=== PATIENT | female | born 1930 ===

== ENCOUNTER 2017-07-18 09:26 | Day surgery (SDC) | payer MEDICARE, MEDICAID ==
--- NOTE | 2017-07-14 13:58 | Pre-Procedure Note/Attestation ---
Pre-Procedure Note/Attestation Complete Prior to Procedure Planned Procedure: bilateral Procedure Narrative: 1- Ptosis correction upper lids. 2- Entropion correction upper lids. 3-Blepharoplasty uppers lids. 4-conjunctivoplasty with amniotic membrane graft, both eyes Indications for Procedure Pre-Operative Diagnosis: 1- Blepharoptosis upper lids 2-Entropion upper lids. 3-Blepharochalasis upper lids 4-conjunctivochalasis , both eyes. Attestation I attest that I discussed the nature of the procedure; its benefits; risks and complications; and alternatives (and the risks and benefits of such alternatives ), prior to the procedure, with the patient (or the patient's legal financial representative). I attest that, if there was a reasonable possibility of needing a blood transfusion, the patient (or the patient's legal financial representative) was given the [facility] standardized written summary, pursuant to the Gordon Won Blood Safety Act ([place] Health and Safety Code # 1645, as amended). I attest that I re-evaluated the patient just prior to the surgery and that there has been no change in the patient's H&P, except as documented below: SHARITA PEDRO Jul 14, 2017 13:58
[2017-07-18] VITALS (10 sets, daily range): BP systolic 123–197; BP diastolic 58–79
[~2017-07-18] VITALS: Ht 149.9 cm; Wt 54.4 kg
[~2017-07-18 09:26] MED LIST: Akten 3.5% 1ml Btl BOTH EYES ONE; Maxitrol Opth Oint 3.5gm BOTH EYES ONE; NKM; NS Irrig 1000ml ONE; Sterile Water Irrig 1000ml IRRIG ONE
[2017-07-18] MEDS ORDERED: Akten 3.5% 1ml Btl ONE (09:37)
[2017-07-18] MEDS ORDERED: Bupivacaine 0.75% 30ml vial INJ ONE (10:09)
[2017-07-18] MEDS ORDERED: Povidone-Iodine 5% opth solution ONE (10:09)
[2017-07-18 10:21] LABS: BASOPHILS % (AUTO) 1.6 % (0.0-2.0); LYMPHOCYTES % (AUTO) 41.1 % (20.0-45.0); MEAN CORPUSCULAR HEMOGLOBIN 26.5 PG (27.0-31.0); MEAN CORPUSCULAR HGB CONC 31.3 G/DL (32.0-36.0); MEAN CORPUSCULAR VOLUME 85 FL (80-99); MEAN PLATELET VOLUME 9.7 FL (6.5-10.1); MONOCYTES % (AUTO) 9.7 % (1.0-10.0); NEUTROPHILS % (AUTO) 41.6 % (45.0-75.0); PLATELET COUNT 171 K/UL (150-450); RED BLOOD COUNT 3.74 M/UL (4.20-5.40); WHITE BLOOD COUNT 4.9 K/UL (4.8-10.8)
[2017-07-18] MEDS ORDERED: METFORMIN HCL1000 M3 PO (10:24)
[2017-07-18 10:25] LABS: ANION GAP 7 mmol/L (5-15); CALCIUM 9.3 MG/DL (8.5-10.1); CARBON DIOXIDE 30 MMOL/L (21-32); CHLORIDE 105 MMOL/L (98-107); CREATININE 1.3 MG/DL (0.55-1.30); POTASSIUM 4.7 MMOL/L (3.5-5.1); SODIUM 142 MMOL/L (136-145)
[2017-07-18 10:27] LABS: PROTHROMBIN TIME 10.8 SEC (9.30-11.50)
[2017-07-18] MEDS ORDERED: Lidocaine 2% 20mg/ml/Epi 0.005mg/ml 20ml vial ONE (10:30)
[2017-07-18] MEDS ORDERED: Propofol 200mg/20ml IV ONE (10:50)
[2017-07-18] MEDS ORDERED: fentaNYL 100 mcg/2 mL IV ONE (10:50)
[2017-07-18] MEDS ORDERED: LR 1000ml ONE (10:50)
[2017-07-18] MEDS ORDERED: Sterile Water Irrig 1000ml IRRIG ONE (10:50)
[2017-07-18] MEDS ORDERED: NS Irrig 1000ml ONE (10:50)
[2017-07-18] MEDS ORDERED: Midazolam 2mg/2ml Inj ONE (10:50)
--- NOTE | 2017-07-18 11:28 | Anethesia Preoperative Eval ---
Anesthesia Pre-op PMH/ROS General Date of Evaluation: Jul 18, 2017 Time of Evaluation: 10:35 Anesthesiologist: Radha ASA Score: ASA 3 Mallampati Score Class I : Soft palate, uvula, fauces, pillars visible Class II: Soft palate, uvula, fauces visible Class III: Soft palate, base of uvula visible Class IV: Only hard plate visible Mallampati Classification: Class III Surgeon: Darleen Diagnosis: Bilateral ptosis Surgical Procedure: Bilateralblephar and conjunctivoplasty Anesthesia History: none Family History: no anesthesia problems Allergies: Coded Allergies: No Known Allergies (Unverified , 07/18/17) Medications: see eMAR Past Medical History Cardiovascular: Reports: HTN, Denies: CAD, SC, valve dz, arrhythmia, other Pulmonary: Reports: ROSI, Denies: asthma, COPD, other Gastrointestinal/Genitourinary: Reports: GERD, CRI, Denies: ESRD, other Neurologic/Psychiatric: Reports: dementia - mild, Denies: CVA, depression/anxiety, TIA, other Endocrine: Reports: DM - stable on pills, Denies: hypothyroidism, steroids, other HEENT: Reports: cataract (L), cataract (R), Denies: glaucoma, [place] (L), [place] (R), other Hematology/Immune: Reports: anemia - mild, Denies: DVT, bleeding disorder, other Musculoskeletal/Integumentary: Reports: DJD PMH Narrative: as above PSxH Narrative: see H&P Anesthesia Pre-op Phys. Exam Physician Exam Last Vital Signs Date Time Temp Pulse Resp B/P (MAP) Pulse Ox O2 Delivery O2 Flow Rate FiO2 07/18/17 10:12 98.8 65 19 123/69 98 Room Air Constitutional: NAD Neurologic: CN 2-12 intact Cardiovascular: RRR, no M/R/G Respiratory: CTA Gastrointestinal: S/NT/ND Airway Exam Mallampati Score: Class III MO: limited Neck: stiff ROM: limited Teeth: missing Dentures: no upper, no lower Anesthesia Pre-op A/P Labs Hematology Test 07/18/17 10:10 White Blood Count 4.9 K/UL (4.8-10.8) Red Blood Count 3.74 M/UL (4.20-5.40) L Hemoglobin 9.9 G/DL (12.0-16.0) L Hematocrit 31.6 % (37.0-47.0) L Mean Corpuscular Volume 85 FL (80-99) Mean Corpuscular Hemoglobin 26.5 PG (27.0-31.0) L Mean Corpuscular Hemoglobin Concent 31.3 G/DL (32.0-36.0) L Red Cell Distribution Width 14.0 % (11.6-14.8) Platelet Count 171 K/UL (150-450) Mean Platelet Volume 9.7 FL (6.5-10.1) Neutrophils (%) (Auto) 41.6 % (45.0-75.0) L Lymphocytes (%) (Auto) 41.1 % (20.0-45.0) Monocytes (%) (Auto) 9.7 % (1.0-10.0) Eosinophils (%) (Auto) 6.0 % (0.0-3.0) H Basophils (%) (Auto) 1.6 % (0.0-2.0) Coagulation Test 07/18/17 10:10 Prothrombin Time 10.8 SEC (9.30-11.50) Prothromb Time International Ratio 1.0 (0.9-1.1) Activated Partial Thromboplast Time 29 SEC (23-33) Chemistry Test 07/18/17 10:10 Sodium Level 142 MMOL/L (136-145) Potassium Level 4.7 MMOL/L (3.5-5.1) Chloride Level 105 MMOL/L (98-107) Carbon Dioxide Level 30 MMOL/L (21-32) Anion Gap 7 mmol/L (5-15) Blood Urea Nitrogen 27 mg/dL (7-18) H Creatinine 1.3 MG/DL (0.55-1.30) Estimat Glomerular Filtration Rate mL/min (>60) Glucose Level 119 MG/DL (74-106) H Calcium Level 9.3 MG/DL (8.5-10.1) Studies Pre-op Studies: EKG - NSR Risk Assessment & Plan Assessment: ASA 3 Plan: GA with LMA surgeon request Status Change Before Surgery: No Pre-Antibiotics Drug: none DUGLAS CALDERON M.D. Jul 18, 2017 11:28
[2017-07-18] MEDS ORDERED: LR 1000ml 1,000 ML IVLG SCH (11:29)
[2017-07-18] MEDS ORDERED: fentaNYL 100 mcg/2 mL IV PRN (11:30)
[2017-07-18] MEDS ORDERED: BSS 15ml BTL ONE (11:30)
[2017-07-18] MEDS ORDERED: DiphenhydrAMINE 50mg/ml Inj IVP PRN (11:30)
--- NOTE | 2017-07-18 13:16 | Discharge Summary ---
Discharge Summary Discharge Summary Discharge Summary DATE OF ADMISSION: 07/18/2017 DATE OF DISCHARGE: 07/18/2017 REASON FOR HOSPITALIZATION: 1- Ptosis upper lids 2- entropion, upper lids 3- Dermatochalasis, upper lids 4- Conjunctivochalasis OU 5- Pterygium bilaterally SURGERY PERFORMED: 1- ptosis correction, upper lid 2- Entropion correction, upper lids 3- Blepharoplasty, upper lids 4- Pterygium excision, bilaterally 5- Conjunctivoplasty, bilaterally 6- Amniotic membrane graft, bilaterally CONDITION IN THE HOSPITAL:The patient tolerated the surgery without complications. DISCHARGE CONDITION: The patient was stable at discharge. DISCHARGE MEDICATIONS: 1. Vigamox eye drops one drop q.i.d, OU 2. Maxitrol eye ointment apply to lids and inside eyes bid, OU 3. Keflex capsule, one q8h 4- Jonancy one PO q6h, PRN per pain POSTOPERATIVE ORDERS: The patient has to rest at home. No bending, No lifting, No watching Television tonight. POSTOPERATIVE FOLLOW UP: The patient will be followed in my office tomorrow morning at 7 o'clock. SHARITA PEDRO Jul 18, 2017 13:16
--- NOTE | 2017-07-18 13:22 | Brief Operative Note ---
Immediate Post Operative Note Operative Note Chief Complaint: Droopy eyelids, Jax, blurry vision, difficulty watching TV and reading Pre-op Diagnosis: 1- Blepharoptosis upper lids 2-Entropion upper lids. 3-Blepharochalasis upper lids 4-conjunctivochalasis , both eyes. Procedure: 1- Ptosis correction, upper lids 2- Entropion correction, upper lids 3- Blepharoplasty, upper lids 4- Pterygium excision, bilaterally 5- Conjunctivoplasty, bilaterally 6- Amniotic membrane graft, bilaterally Post-op Diagnosis: same as pre-op Surgeon: Sharita Morejon MD. Edge Cutting Machine Operator: None Additional Surgeons: None Anesthesiologist: Dr. Garcia Anesthesia: general Specimen: none Complications: none Condition: stable Fluids: 700 ml Estimated Blood Loss: minimal Drains: none Implant(s) used?: SHARITA Romero Jul 18, 2017 13:22
--- NOTE | 2017-07-19 08:45 | Operative Note - Dictated ---
DATE OF OPERATION: 07/18/2017 FACILITY: [facility] SURGEON: Greg Morejon M.D. STAFF RADIOGRAPHER: None. ANESTHESIOLOGIST: Pedro Garcia M.D. ANESTHESIA: Monitored anesthesia care (MAC) plus local anesthesia with lidocaine 2% with epinephrine 1:100,000. PREOPERATIVE DIAGNOSES: 1. Ptosis, upper lids. 2. Entropion, upper lids. 3. Dermatochalasis and blepharochalasis, upper lids. 4. Pterygium bilaterally. 5. Conjunctivochalasis bilaterally. POSTOPERATIVE DIAGNOSES: 1. Ptosis, upper lids. 2. Entropion, upper lids. 3. Dermatochalasis and blepharochalasis, upper lids. 4. Pterygium bilaterally. 5. Conjunctivochalasis bilaterally. SURGERY PERFORMED: 1. Ptosis correction, upper lids. 2. Entropion correction, upper lids. 3. Blepharoplasty, upper lids. 4. Pterygium excision bilaterally. 5. Conjunctivoplasty bilaterally. 6. Amniotic membrane graft. INDICATION FOR SURGERY: The patient is an 86-year-old lady with history of hypertension, hypercholesterolemia, diabetes mellitus, osteopenia, and osteoarthritis. The patient is taking metformin, Diovan, simvastatin, Motrin, and aspirin. She has a past surgical history including bunion surgery 10 years ago and cataract surgery 7 years ago bilaterally. She is not a drinker and she is not a smoker. She is not allergic to any medications. She is complaining of blurry vision and difficulty watching TV and reading because of upper lid droopiness. She is suffering from severe blepharochalasis with ptosis and entropion plus conjunctivochalasis and pterygium bilaterally. The problem is progressive dermatochalasis skin disease with resulting changes of a corneal curvature, which induced astigmatism and covering of the visual acuity, which is interruptive for driving, watching TV, and reading. The severity of the patient's dermatochalasis, ptosis, entropion, and also conjunctivochalasis, and pterygium are all clearly demonstrated on enclosed photos and the patient's visual fletcher. The only solution for this patient is correction of all the disfigurement and anatomy changes with surgery. There is no alternative for that. INFORMED CONSENT: The nature of the surgery, risks, benefits, alternatives, and potential complications were all explained in detail to the patient in her language Farsi. She voiced understanding. The potential complications including, but not limited to bleeding, infection, corneal exposure, over correction, under correction, ecchymosis, swelling of the face, hematoma, dry eye syndrome, loss of eyelashes, loss of eyebrows, inequality of both eyes, change in vision and even loss of vision, and loss of the eye were all explained in detail to the patient, who voiced understanding and accepted all the complications. Then, she signed the consent form, which is in the chart. DESCRIPTION OF SURGERY AND FINDINGS: Following that, the patient was taken to the operation room in a stable condition. Lidocaine gel, Akten, were applied to the conjunctiva of both eyes. Following that, the upper eyelids were marked with a marking pen 10 mm above the root of the eyelashes and 10 mm below the lower part of the eyebrows. About 20 mm of the skin was left to facilitate the eye closure. IV sedation was given by the anesthesiologist, Dr. Garcia. After adequate anesthesia and sedation has been achieved, the upper eyelids, eyebrows, and frontal skin were anesthetized with 2% lidocaine and with epinephrine 1:100,000. Following that, the speculum was placed in the right eye. Actually, the patient was not comfortable, therefore, Dr. Garcia changed the anesthesia from local to general anesthesia. After intubation of the patient, the patient was called and then the eye was cleaned and draped again. There is improvement in sedation in the right eye. The pterygium of the right eye was excised in toto. Hemostasis was performed. Following that, the loosened conjunctiva was removed. All of the cornea. About 2 mm of the conjunctiva at the corneoscleral junction of the cornea was left for the . Following that, amniotic membrane was glued with biologic glue, Tisseel, to the sclera. Following that, the conjunctiva was glued on top of the amniotic membrane with Tisseel. Same procedure was performed in the left eye. Following that, the right eye procedure of the eyelid was started. Lidocaine 2% with epinephrine 1:100,000 was injected under the skin. Following that, using a Bovie knife, the skin and subdermal tissue was excised from the orbicularis oculi muscle. Hemostasis was performed. Then, the orbicularis ocular muscle was excised and 2 fat compartments were released. The fat compartments were sculptured conservatively. Following that, the levator palpebrae superioris tendon was tacked at about 6 mm and stitched with 6-0 Vicryl in both sides and the sutures were trimmed and buried into the tissue. Hemostasis was performed. Following that, a groove was made 3 mm upper to the lashes in both sides in the tarsal plate. Using the Vannas scissors, material inside the groove was excised, and the lids of the groove was stitched with 6-[address] and [address], the eyelid border rotated upward and lashes were turned from downwards to upwards. Following that, the orbicularis oculi muscle was stitched with 6-0 Vicryl in 4 spots with stitches of Quill and hemostasis was performed. Following that, the skin was stitched in the fashion of continuous running with 6-0 plain gut. At the end of the procedure, Maxitrol was applied to the conjunctivae of both eyes and to the skin. Following that, the patient was transferred to the recovery room. In the recovery room, the wound was checked for bleeding and there was no bleeding. Ice compresses and cold compresses were applied to the wound. Postop orders and directions were given to the patient. The patient will be discharged home upon stabilization. The patient will be followed in my office tomorrow morning. Greg Morejon M.D. DR: CARLEY JOB#: [id number] CC:
--- NOTE | 2017-07-19 15:36 | Cardiology Report ---
APPROVED REPORT EKG Measurement Heart [id number] Normal sinus rhythm Normal ECG
--- NOTE | 2017-07-21 15:29 | Immediate Post-Op Evaluation ---
Immediate Post-Op Evalulation Immediate Post-Op Evalulation Procedure: Bilateral blepharoplasty Date of Evaluation: Jul 18, 2017 Time of Evaluation: 11:08 IV Fluids: 300 Blood Products: none Estimated Blood Loss: min Urinary Output: none Blood Pressure Systolic: 138 Blood Pressure Diastolic: 58 Pulse Rate: 62 Respiratory Rate: 20 O2 Sat by Pulse Oximetry: 99 Temperature (Fahrenheit): 97.7 Pain Score (1-10): 2 Nausea: No Vomiting: No Complications none Patient Status: awake, patent, none Hydration Status: adequate DUGLAS CALDERON M.D. Jul 21, 2017 15:29
[2017-07-21 15:30] VITALS: BP 128/74
--- NOTE | 2017-07-21 15:30 | 48 Hour Post Anesthesia Eval ---
Post Anesthesia Evaluation Procedure: Bilateral blepharoplasty Date of Evaluation: Jul 18, 2017 Time of Evaluation: 12:50 Blood Pressure Systolic: 128 0: 74 Pulse Rate: 65 Respiratory Rate: 20 Temperature (Fahrenheit): 97.6 O2 Sat by Pulse Oximetry: 98 Airway: patent Nausea: No Vomiting: No Pain Intensity: 2 Hydration Status: adequate Cardiopulmonary Status: stable Mental Status/LOC: patient returned to baseline Follow-up Care/Observations: n/a Post-Anesthesia Complications: none Follow-up care needed: ready to discharge DUGLAS CALDERON M.D. Jul 21, 2017 15:30
--- NOTE | 2017-07-25 13:00 | Pre-op HX & Phy Repo 2 SIG ---
DATE OF ADMISSION: 07/18/2017 PRESURGICAL INTERNAL MEDICINE HISTORY AND PHYSICAL REASON FOR EVALUATION: I was asked by Dr. Greg Morejon to see this 86-year-old female, who is going for elective surgery on both eyes. The patient has a bilateral ptosis. The patient was evaluated. Chart was reviewed. PAST MEDICAL HISTORY AND REVIEW OF SYSTEMS: Remarkable for diabetes mellitus type 2. Denies history of chest pain, palpitation, or heart attack. No history of hypertension or stroke. Denies history of GI bleeding. No respiratory problem. No asthma or bronchitis. No history of hepatitis. Denies history of renal failure. PAST SURGICAL HISTORY: The patient had a cataract surgery. ALLERGIES: Not known. MEDICATIONS: Include metformin, vitamin D, calcium supplement, multivitamins, and baby aspirin. FAMILY HISTORY: Father from heart attack and mother unknown. HABITS: No history of smoke or alcohol habit. PHYSICAL EXAMINATION: GENERAL: Alert, well-developed, well-nourished female in her 80s. No acute distress. VITAL SIGNS: Blood pressure 123/69, temperature 98.8, pulse 69 and regular, and O2 saturation 99% on room air. SKIN: No rashes. Pale and dry. LYMPHATIC: No lymph node enlargement. HEENT: Head, normocephalic and atraumatic. Ears, clear. Eyes, full description per Dr. Greg Morejon. Mouth is clear and moist. Dentures. NECK: No jugular venous distention. Carotids artery +2. Trachea midline. CHEST: No deformity or asymmetry. No palpable mass. LUNGS: Clear to auscultation and percussion. No rales or rhonchi. HEART: Sinus rhythm. No ectopy. No murmur. No S3 or S4. ABDOMEN: Soft and benign. Liver and spleen are not enlarged. EXTREMITIES: No peripheral edema. Varicose veins. NEUROLOGIC: Tardive dyskinesia, face. DIAGNOSTIC AND LABORATORY DATA: Electrocardiogram shows normal sinus rhythm, 83 per minute, normal ECG. Fasting blood sugar 123 mg/dL. The patient did not eat or drink from last night. IMPRESSION: 1. Bilateral ptosis. 2. Diabetes mellitus type 2. 3. Tardive dyskinesia. PLAN: Blepharoplasty, bilateral, per Dr. Greg Morejon. CONCLUSION: The patient's vital signs are stable. ECG is normal. The patient did not eat or drink from last night. The patient's condition optimized for surgery. Thank you very much, Dr. Morejon, for the privilege to participate in the presurgical care of this interesting patient. Micha Almanza M.D. DR: LYNDSEY JOB#: [id number] CC:
== END 2017-07-18 14:50 | disposition home or self-care (01) ==
LOC: SUR 09:26
DX: H02.403 Unspecified ptosis of bilateral eyelids (principal); H02.004 Unspecified entropion of left upper eyelid; H02.001 Unspecified entropion of right upper eyelid; H02.834 Dermatochalasis of left upper eyelid; H02.831 Dermatochalasis of right upper eyelid; H11.003 Unspecified pterygium of eye, bilateral; H11.823 Conjunctivochalasis, bilateral; I10 Essential (primary) hypertension; G47.33 Obstructive sleep apnea (adult) (pediatric); K21.9 Gastro-esophageal reflux disease without esophagitis; E11.9 Type 2 diabetes mellitus without complications; I12.9 Hypertensive chronic kidney disease with stage 1 through stage 4 chronic kidney disease, or unspecified chronic kidney disease; E11.22 Type 2 diabetes mellitus with diabetic chronic kidney disease; N18.9 Chronic kidney disease, unspecified; H53.8 Other visual disturbances; E78.00 Pure hypercholesterolemia, unspecified; M85.80 Other specified disorders of bone density and structure, unspecified site; M19.90 Unspecified osteoarthritis, unspecified site; Z79.82 Long term (current) use of aspirin; Z79.84 Long term (current) use of oral hypoglycemic drugs
CPT/HCPCS: 15822; 36415; 68115; 68320; 80048; 82962; 85025; 85610; 85730; 93005; J2250; J2704; J3010; J3490; J7120; 94003; 94150